=== PATIENT | female | born 1955 | race Caucasian/White ===

== ENCOUNTER 2021-10-21 06:03 | Day surgery (SDC) | payer OTHER ==
[2021-10-13 13:58] VITALS: BMI 23.2
[2021-10-21] MEDS ORDERED: ROPIVACAINE HCL/PF 100 MG/20 ML VIAL ONE (07:42)
[2021-10-21] MEDS ORDERED: MIDAZOLAM HCL 2 MG/2 ML SINGLE DOSE VIAL ONE (07:42)
[2021-10-21] MEDS ORDERED: PROPOFOL 20 ML ONE ×2 (08:04)
[2021-10-21] MEDS ORDERED: oxyCODONE HCL 5 MG TABLET PO PRN ×2 (08:23)
[2021-10-21] MEDS ORDERED: ONDANSETRON 4 MG/2 ML VIAL IVPUSH PRN (08:23)
[2021-10-21] MEDS ORDERED: ACETAMINOPHEN 1000 MG/100 ML BAG IVPB ONE (08:23)
[2021-10-21] MEDS ORDERED: ACETAMINOPHEN 500 MG TABLET (FP) PO SCH (08:30)
[2021-10-21] MEDS ORDERED: KETOROLAC TROMETHAMINE 30 MG/1 ML VIAL IVPUSH SCH (08:30)
[2021-10-21] MEDS ORDERED: BUPIVACAINE HCL/EPINEPHRINE/PF 30 ML VIAL IJ ONE (08:51)
[2021-10-21] MEDS ORDERED: BUPIVACAINE 0.25% /EPI 1:200,000 10 ML VIAL NR ONE (09:50)
[2021-10-21 10:26] VITALS: TEMP 97.3
[2021-10-21 11:43] VITALS: BP 102/63; PULSE 66
== END 2021-10-21 11:30 | disposition home or self-care (01) ==
LOC: FASU 06:03
PROVIDERS: ATTEND Orthopaedic Surgery
PROC: 0LS30ZZ Reposition Right Upper Arm Tendon, Open Approach (ICD-10-PCS; 2021-10-21)
PROC: 0PB94ZZ Excision of Right Clavicle, Percutaneous Endoscopic Approach (ICD-10-PCS; principal; 2021-10-21 09:04)
PROC: 0RNJ4ZZ Release Right Shoulder Joint, Percutaneous Endoscopic Approach (ICD-10-PCS; 2021-10-21 09:04)
PROC: 0RBJ4ZZ Excision of Right Shoulder Joint, Percutaneous Endoscopic Approach (ICD-10-PCS; 2021-10-21 09:04)
DX: M75.111 Incomplete rotator cuff tear or rupture of right shoulder, not specified as traumatic (principal); M67.813 Other specified disorders of tendon, right shoulder; M65.811 Other synovitis and tenosynovitis, right shoulder; M75.01 Adhesive capsulitis of right shoulder; M19.011 Primary osteoarthritis, right shoulder; S43.431A Superior glenoid labrum lesion of right shoulder, initial encounter; X58.XXXA Exposure to other specified factors, initial encounter; Y93.9 Activity, unspecified; Y92.9 Unspecified place or not applicable
CPT/HCPCS: 88304-TC; 94760

== ENCOUNTER 2023-02-06 05:33 | Day surgery (SDC) | payer MEDICARE ==
[2023-02-05 11:03] VITALS: BMI 23.4
[2023-02-06 11:45] VITALS: RESP 18
[2023-02-06 11:51] VITALS: BP 106/61; PULSE 62; TEMP 98
== END 2023-02-06 11:52 | disposition home or self-care (01) ==
LOC: JASU-ENDO 05:33
PROVIDERS: ATTEND Student in an Organized Health Care Education/Training Program
PROC: 0DJD8ZZ Inspection of Lower Intestinal Tract, Via Natural or Artificial Opening Endoscopic (ICD-10-PCS; principal; 2023-02-06 11:30)
DX: Z12.11 Encounter for screening for malignant neoplasm of colon (principal); K64.8 Other hemorrhoids